=== PATIENT | male | born 1955 | race Caucasian/White ===

== ENCOUNTER 2018-04-09 05:48 | Day surgery (SDC) | payer BC ==
[2018-04-09] MEDS ORDERED: DIPRIVAN 200 MG/20 ML IV ONE (05:49)
[2018-04-09] MEDS ORDERED: Ketamine HCl 50 MG/ML IV ONE (05:49)
[2018-04-09] MEDS ORDERED: Lactated Ringers 1,000 ML IV SCH (06:00)
[2018-04-09 08:43] VITALS: O2SAT 95
[2018-04-09 09:02] VITALS: BP 137/82; PULSE 62
--- NOTE | 2018-04-09 09:09 | OP ---
SURGERY DATE/TIME: 04/09/2018 0739 PREOPERATIVE DIAGNOSIS: 20 year history of ulcerative colitis. POSTOPERATIVE DIAGNOSIS: Normal colon. PROCEDURE: Colonoscopy with biopsy. SURGEON: Dr. Sen. ANESTHESIA: MAC. Medications given by anesthesia department. HISTORY: The patient is a 62 year-old white male patient now presenting for screening colonoscopy. The patient has a long history of ulcerative colitis which presently is under control on medication. The patient reports his previous examination was a little over two years ago. He was felt the need to have endoscopic evaluation for surveillance of colon cancer and biopsies of the colon to rule out any underlying dysplasia. The patient was described the risks of the procedure including the risk of perforation, phlebitis, untoward reaction to medication, bleeding and missed lesions. The patient verbalized his understanding and desired to have the procedure performed. DESCRIPTION OF PROCEDURE: The patient was given the medications by the anesthesia department. He had continuous pulse oximetry, ECG monitoring, intermittent blood pressure monitoring and tidal CO2 monitoring during the examination. The patient was placed in the left lateral decubitus position. A digital rectal examination was performed and revealed normal anal sphincter tone, no masses and normal prostate. The flexible Olympus pediatric colonoscope was used to intubate the rectum. A view of the colon was developed sequentially to the cecum including a short distance into the terminal ileum. Upon insertion and withdrawal, including a retroflex view in the rectum, no mucosal lesions were encountered. Biopsies were obtained throughout the colon to rule out underlying presence of dysplasia from the ulcerative colitis. The scope was removed from the patient who tolerated the procedure well and was sent back to OP recovery in good condition. The prep was noted to be fair. There was noted to be large amounts of liquid stool that was suctioned clear as best we could during the procedure.
== END 2018-04-09 09:15 | disposition home or self-care (01) ==
LOC: SDC 05:48
PROVIDERS: ATTEND Family Medicine
DX: Z12.11 Encounter for screening for malignant neoplasm of colon (principal); Z87.19 Personal history of other diseases of the digestive system
CPT/HCPCS: 88305; 94250; J2704